=== PATIENT | male | born 2000 | race Caucasian/White ===

== ENCOUNTER 2021-06-23 13:06 | Emergency (ER) | payer MEDICAID ==
[~2021-06-23] VITALS: Ht 177.8 cm; Wt 63.6 kg
[2021-06-23] MEDS ORDERED: ONDANSETRON HCL 4 MG/2 ML VIAL IVP ONE (13:45)
[2021-06-23] MEDS ORDERED: SODIUM CHLORIDE 0.9% 1,000 ML IV ONE (13:45)
[2021-06-23] MEDS ORDERED: PANTOPRAZOLE SODIUM 40 MG/VIAL IVP ONE (13:45)
[2021-06-23 13:51] LABS: BASOPHILS % (AUTO) 0.4 % (0.0-2.0); EOSINOPHILS % (AUTO) 0.8 % (1.0-6.0); HEMATOCRIT 44.8 % (41-53); HEMOGLOBIN 15.2 g/dL (13.5-17.5); LYMPHOCYTES # (AUTO) 1.2 K/uL (1.0-4.8); LYMPHOCYTES % (AUTO) 16.2 % (22.0-44.0); MEAN CORPUSCULAR HEMOGLOBIN 28.5 pg (26.0-34.0); MEAN CORPUSCULAR VOLUME 84 fL (80-100); MONOCYTES # (AUTO) 0.5 K/uL (0.1-1.0); MONOCYTES % (AUTO) 6.6 % (2.0-9.0); NEUTROPHILS # (AUTO) 5.7 K/uL (1.8-7.7); PLATELET COUNT (AUTO) 233 K/uL (150-450); RED BLOOD CELL COUNT(AUTO) 5.34 MIL/uL (4.50-5.90); RED CELL DISTRIBUTION WIDTH 13.7 % (11.5-14.5)
[2021-06-23 14:07] LABS: ANION GAP 9 mmol/L (8-16); CALCIUM, TOTAL 10.1 mg/dL (8.8-10.5); CARBON DIOXIDE 33 mmol/L (22-29); CHLORIDE 102 mmol/L (98-107); CREATININE 1.13 mg/dL (0.60-1.30); GLOMERULAR FILTR. RATE CALC > 60 mL/min (>60); GLUCOSE,RANDOM 96 mg/dL (70-110); POTASSIUM 3.6 mmol/L (3.5-5.1); SODIUM SERUM 144 mmol/L (136-145); UREA NITROGEN, BLOOD 12 mg/dL (7-18)
[2021-06-23 14:12] LABS: ALANINE AMINOTRANSFERASE 26 U/L (12-78); ALBUMIN 4.8 g/dL (3.4-5.0); ALKALINE PHOSPHATASE 83 U/L (46-116); ASPARTATE AMINOTRANSFERASE 23 U/L (15-37); BILIRUBIN,TOTAL 1.1 mg/dL (0.1-1.0); LIPASE 51 U/L (73-393); TOTAL PROTEIN, SERUM 8.6 g/dL (6.4-8.2)
[2021-06-23 15:30] VITALS: BP 136/91
== END 2021-06-23 16:31 | disposition home or self-care (01) ==
LOC: EMS 13:13
DX: R10.13 Epigastric pain (principal); R11.2 Nausea with vomiting, unspecified; F12.90 Cannabis use, unspecified, uncomplicated
CPT/HCPCS: 36415; 74022; 80053; 83690; 85025; 96361; 96374; 96375; 99284; C9113; G0480; J2405; J7030

== ENCOUNTER 2024-05-07 09:25 | Emergency (ER) | payer MEDICAID ==
[~2024-05-07] VITALS: Ht 182.9 cm; Wt 86.4 kg
[2024-05-07 09:45] VITALS: TEMP 98.7
[2024-05-07 11:00] LABS: GLUCOMETER DEV NAME(LOC) ER.7; GLUCOSE,POINT OF CARE 92 MG/DL (70-110)
[2024-05-07 11:01] LABS: BASOPHILS % (AUTO) 0.3 % (0.0-2.0); EOSINOPHILS % (AUTO) 0.6 % (1.0-6.0); HEMATOCRIT 49.7 % (41-53); HEMOGLOBIN 16.2 g/dL (13.5-17.5); LYMPHOCYTES % (AUTO) 12.4 % (22.0-44.0); MEAN CORPUSCULAR HEMOGLOBIN 28.1 pg (26.0-34.0); MEAN CORPUSCULAR HGB CONC 32.7 G/dL (31.0-37.0); MEAN CORPUSCULAR VOLUME 86 fL (80-100); MONOCYTES # (AUTO) 0.4 K/uL (0.1-1.0); MONOCYTES % (AUTO) 5.1 % (2.0-9.0); NEUTROPHILS # (AUTO) 6.5 K/uL (1.8-7.7); NEUTROPHILS % (AUTO) 81.6 % (40.0-70.0); PLATELET COUNT (AUTO) 230 K/uL (150-450); RED BLOOD CELL COUNT(AUTO) 5.77 MIL/uL (4.50-5.90); RED CELL DISTRIBUTION WIDTH 15.4 % (11.5-14.5)
[2024-05-07 11:19] LABS: ANION GAP 6 mmol/L (8-16); CALCIUM, TOTAL 9.1 mg/dL (8.8-10.5); CARBON DIOXIDE 31 mmol/L (22-29); CHLORIDE 104 mmol/L (98-107); CREATININE 1.21 mg/dL (0.60-1.30); GLOMERULAR FILTR. RATE CALC > 60 mL/min (>60); GLUCOSE,RANDOM 96 mg/dL (70-110); POTASSIUM 4.1 mmol/L (3.5-5.1); SODIUM SERUM 141 mmol/L (136-145); UREA NITROGEN, BLOOD 7 mg/dL (7-18)
[2024-05-07] MEDS: SODIUM CHLORIDE 0.9% 1,000 ML IV ONE (11:21)
[2024-05-07] MEDS: FAMOTIDINE 20 MG/2 ML VIAL IVP ONE (11:21)
[2024-05-07] MEDS: ONDANSETRON HCL 4 MG/2 ML VIAL IVP ONE (11:21)
[2024-05-07 11:25] LABS: ALANINE AMINOTRANSFERASE 12 U/L (12-78); ALBUMIN 4.1 g/dL (3.4-5.0); ALKALINE PHOSPHATASE 92 U/L (46-116); ASPARTATE AMINOTRANSFERASE 18 U/L (15-37); BILIRUBIN,TOTAL 1.3 mg/dL (0.1-1.0); LIPASE 31 U/L (16-77); TOTAL PROTEIN, SERUM 7.6 g/dL (6.4-8.2)
[2024-05-07 12:13] VITALS: BP 99/60; PULSE 52; RESP 12; O2SAT 97
[2024-05-07] MEDS ORDERED: ONDA-104 PO (12:33)
== END 2024-05-07 13:15 | disposition home or self-care (01) ==
LOC: EMS 09:25
DX: R11.2 Nausea with vomiting, unspecified (principal); R10.9 Unspecified abdominal pain; F12.90 Cannabis use, unspecified, uncomplicated; Z90.49 Acquired absence of other specified parts of digestive tract; Z79.899 Other long term (current) drug therapy
CPT/HCPCS: 99284; 96374; 96361; 96375; 80048; 80076; 82962; 83690; 85025; 36415; 82948; J3490; J2405; J7030

== ENCOUNTER 2024-10-01 12:26 | Emergency (ER) | payer MEDICAID ==
[~2024-10-01] VITALS: Ht 182.9 cm; Wt 86.4 kg
[~2024-10-01 12:26] MED LIST: ONDA-104 PO
[2024-10-01] MEDS: CEPHALEXIN MONOHYDRATE 500 MG CAPSULE PO ONE (13:31)
[2024-10-01] MEDS: DOXYCYCLINE HYCLATE 100 MG TABLET PO ONE (13:31)
[2024-10-01] MEDS: IBUPROFEN 400 MG TABLET PO ONE (13:31)
[2024-10-01] MEDS: POVIDONE-IODINE 10% 15 ML SOLUTION UD TP ONE (13:31)
[2024-10-01 13:38] LABS: BASOPHILS % (AUTO) 0.4 % (0.0-2.0); EOSINOPHILS % (AUTO) 0.4 % (1.0-6.0); HEMATOCRIT 44.5 % (41-53); HEMOGLOBIN 14.6 g/dL (13.5-17.5); LYMPHOCYTES # (AUTO) 1.3 K/uL (1.0-4.8); LYMPHOCYTES % (AUTO) 19.1 % (22.0-44.0); MEAN CORPUSCULAR HEMOGLOBIN 27.2 pg (26.0-34.0); MEAN CORPUSCULAR HGB CONC 32.8 G/dL (31.0-37.0); MEAN CORPUSCULAR VOLUME 83 fL (80-100); MONOCYTES # (AUTO) 0.3 K/uL (0.1-1.0); MONOCYTES % (AUTO) 5.1 % (2.0-9.0); NEUTROPHILS # (AUTO) 4.9 K/uL (1.8-7.7); PLATELET COUNT (AUTO) 255 K/uL (150-450); RED BLOOD CELL COUNT(AUTO) 5.37 MIL/uL (4.50-5.90); WHITE BLOOD COUNT (AUTO) 6.6 K/uL (4.5-11.0)
[2024-10-01 13:48] LABS: ANION GAP 10 mmol/L (8-16); CARBON DIOXIDE 27 mmol/L (22-29); CHLORIDE 105 mmol/L (98-107); CREATININE 0.85 mg/dL (0.60-1.30); GLOMERULAR FILTR. RATE CALC > 60 mL/min (>60); GLUCOSE,RANDOM 101 mg/dL (70-110); POTASSIUM 3.7 mmol/L (3.5-5.1); SODIUM SERUM 142 mmol/L (136-145); UREA NITROGEN, BLOOD 8 mg/dL (7-18)
[2024-10-01] MEDS ORDERED: IBUP-1492 PO (14:03)
[2024-10-01] MEDS ORDERED: CEPH-558 PO (14:03)
[2024-10-01] MEDS ORDERED: DOXY-354 PO (14:03)
[2024-10-01 14:25] VITALS: BP 139/81; PULSE 68; RESP 18; TEMP 98.6; O2SAT 98
== END 2024-10-01 14:52 | disposition home or self-care (01) ==
LOC: EMS 12:27
DX: L02.212 Cutaneous abscess of back [any part, except buttock and flank] (principal); F12.90 Cannabis use, unspecified, uncomplicated; Z90.49 Acquired absence of other specified parts of digestive tract
CPT/HCPCS: 99284; 10060; 80048; 85025; 36415; A4247

== ENCOUNTER 2024-11-24 07:55 | Day surgery (SDC) | payer MEDICAID ==
[~2024-11-24] VITALS: Ht 182.9 cm; Wt 88.5 kg
[~2024-11-24 07:55] MED LIST changes: +ESOM20CA31 PO
[2024-11-24] MEDS: SODIUM CHLORIDE 0.9% 1,000 ML IV ONE (08:46)
[2024-11-24] MEDS ORDERED: PROPOFOL 1% 20 ML VIAL IVP ONE (12:00)
[2024-11-24] MEDS ORDERED: LIDOCAINE/PF 2% 5 ML VIAL ONE (12:00)
== END 2024-11-24 10:35 | disposition home or self-care (01) ==
LOC: SURGERY 07:55
PROVIDERS: ATTEND Internal Medicine Gastroenterology
DX: R10.13 Epigastric pain (principal); K29.70 Gastritis, unspecified, without bleeding; K44.9 Diaphragmatic hernia without obstruction or gangrene; Z98.890 Other specified postprocedural states; Z79.899 Other long term (current) drug therapy
CPT/HCPCS: 43239; 88305; C1769; J2704; J3490

== ENCOUNTER 2025-03-02 16:22 | Emergency (ER) | payer MEDICAID, OTHER ==
[~2025-03-02] VITALS: Ht 182.9 cm; Wt 88.0 kg
[2025-03-02 16:33] VITALS: TEMP 97.9
[2025-03-02 17:10] LABS: PH,URINE DRUG SCREEN 5.5 (5.0-8.0)
[2025-03-02 17:17] LABS: ALCOHOL, URINE DRUG SCREEN NEGATIVE (NEGATIVE); AMPHET/METH SCREEN,URINE NEGATIVE (NEGATIVE); BARBITURATE SCREEN, URINE NEGATIVE (NEGATIVE); CANNABINOID SCREEN,URINE POSITIVE (NEGATIVE); COCAINE SCREEN,URINE NEGATIVE (NEGATIVE); METHADONE SCREEN, URINE NEGATIVE (NEGATIVE)
[2025-03-02 18:40] VITALS: BP 119/82; PULSE 65; RESP 16; O2SAT 98
[2025-03-02 19:38] LABS: PLATELET COUNT (AUTO) 238 K/uL (150-450); RED BLOOD CELL COUNT(AUTO) 5.37 MIL/uL (4.50-5.90); RED CELL DISTRIBUTION WIDTH 15.7 % (11.5-14.5); WHITE BLOOD COUNT (AUTO) 8.3 K/uL (4.5-11.0)
[2025-03-02 19:46] LABS: CALCIUM, TOTAL 8.6 mg/dL (8.8-10.5); CREATININE 1.14 mg/dL (0.60-1.30); GLOMERULAR FILTR. RATE CALC > 60 mL/min (>60); GLUCOSE,RANDOM 93 mg/dL (70-110); SODIUM SERUM 140 mmol/L (136-145); UREA NITROGEN, BLOOD 11 mg/dL (7-18)
[2025-03-02] MEDS: FAMOTIDINE 20 MG TABLET PO ONE (20:39)
[2025-03-02] MEDS: ONDANSETRON 4 MG RAPDIS TABLET PO ONE (20:39)
[2025-03-02] MEDS: MAG HYDROX/ALUMINUM HYD/SIMETH ES 30 ML SUSPENSION UDCUP PO ONE (20:39)
[2025-03-02] MEDS ORDERED: FAMO20 PO (21:10)
== END 2025-03-02 21:58 | disposition home or self-care (01) ==
LOC: EMS 16:22
DX: R10.13 Epigastric pain (principal); R11.2 Nausea with vomiting, unspecified; R19.7 Diarrhea, unspecified; F12.90 Cannabis use, unspecified, uncomplicated; Z90.49 Acquired absence of other specified parts of digestive tract
CPT/HCPCS: 80048; 80307; 83690; 85025; 99284